=== PATIENT | female | born 1990 | race American Indian/Alaskan Native ===

== ENCOUNTER 2018-02-06 01:42 | Emergency (ER) | payer OTHER ==
[2018-02-06 01:53] VITALS: BP 131/92
--- NOTE | 2018-02-06 03:35 | Emergency Department Report ---
ED ENT HPI - General Chief complaint: Dental/Oral Stated complaint: TOOTHACHE Source: patient Mode of arrival: Ambulatory Limitations: No Limitations - History of Present Illness Initial comments: 27-year-old -[place] female comes in complaining of a toothache. Patient reports that she was recently seen by her dentist on Wednesday and placed on [place] ibuprofen and penicillin V. Patient reports that she still having pain. Patient reports that she stopped taking the [place] after 2 days as she felt it was not helping. Patient denies any fever chills nausea vomiting. She does admit that she has a hole in her tooth MD complaint: tooth pain -: days(s) (5) Location: tooth # (18) Severity: severe Severity scale (0 -10): 10 Quality: stabbing, aching, sharp Consistency: constant Improves with: none Worsens with: none Context- Dental: history of dental caries, poor dental care Associated Symptoms: toothache. denies: fever, cough, gum swelling - Related Data Home Medications Medication Instructions Recorded Confirmed Last Taken Hydrocodon-Acetaminophen 5-325 2 tab PO Q4H PRN 02/06/18 02/06/18 Unknown Penicillin Vk 500 mg PO QID 02/06/18 02/06/18 Unknown Allergies Allergy/AdvReac Type Severity Reaction Status Date / Time No Known Allergies Allergy Unverified 02/06/18 01:53 ED Dental HPI - General Chief complaint: Dental/Oral Stated complaint: TOOTHACHE Source: patient Mode of arrival: Ambulatory Limitations: No Limitations - Related Data Home Medications Medication Instructions Recorded Confirmed Last Taken Hydrocodon-Acetaminophen 5-325 2 tab PO Q4H PRN 02/06/18 02/06/18 Unknown Penicillin Vk 500 mg PO QID 02/06/18 02/06/18 Unknown Allergies Allergy/AdvReac Type Severity Reaction Status Date / Time No Known Allergies Allergy Unverified 02/06/18 01:53 ED Review of Systems ROS: Stated complaint: TOOTHACHE Other details as noted in HPI Constitutional: denies: chills, fever ENT: dental pain Respiratory: denies: cough, shortness of breath, wheezing Cardiovascular: denies: chest pain, palpitations ED Past Medical Hx - Past Medical History Previous Medical History?: No - Surgical History Past Surgical History?: Yes Additional Surgical History: X 1 - Social History Smoking Status: Never Smoker Substance Use Type: None - Medications Home Medications: Home Medications Medication Instructions Recorded Confirmed Last Taken Type Hydrocodon-Acetaminophen 5-325 2 tab PO Q4H PRN 02/06/18 02/06/18 Unknown History Penicillin Vk 500 mg PO QID 02/06/18 02/06/18 Unknown History ED Physical Exam - General Limitations: No Limitations General appearance: alert, in no apparent distress - Head Head exam: Present: atraumatic, normocephalic - Expanded ENT Exam Expanded Teeth exam: Present: dental caries, dental tenderness # (18). Absent: gingival enlargement Throat exam: Negative: tonsillar erythema, tonsillomegaly - Neck Neck exam: Present: full ROM. Absent: tenderness, lymphadenopathy ED Course Vital Signs 02/06/18 01:47 Temperature 98 F Pulse Rate 74 Respiratory 18 Rate Blood Pressure 131/92 O2 Sat by Pulse 100 Oximetry ED Medical Decision Making - Medical Decision Making Patient has been evaluated by this provider fast track. Discussed the patient that she is on [place] 5/325 as well as ibuprofen and penicillin VK. Discussed the patient that she is on appropriate medication for her pain. I recommend patient to start back taken her [place] and to follow up with her dentist. Patient has recently taken Motrin 2 hours ago. Therefore not able to offer her Toradol injection or more Motrin. Critical care attestation.: If time is entered above; I have spent that time in minutes in the direct care of this critically ill patient, excluding procedure time. ED Disposition Clinical Impression: Toothache Disposition: DC-01 TO HOME OR SELFCARE Is pt being admited?: No Does the pt Need Aspirin: No Condition: Stable Instructions: Toothache (ED) Additional Instructions: Continue with her [place] ibuprofen and penicillin. Follow-up with her dentist first thing on Wednesday morning. You can place warm compresses to your face as this may help with your pain. Referrals: PRIMARY CARE, [Primary Care Provider] - 3-5 Days Forms: Work/School Release Form(ED)
== END 2018-02-06 03:24 | disposition home or self-care (01) ==
LOC: ED 01:42
DX: K08.89 Other specified disorders of teeth and supporting structures (principal)
CPT/HCPCS: 99281

== ENCOUNTER 2019-07-12 08:28 | Emergency (ER) | payer OTHER ==
[2019-07-12 08:52] VITALS: BP 122/74
--- NOTE | 2019-07-12 08:57 | Emergency Department Report ---
ED HPI - General Chief complaint: Abdominal Pain Stated complaint: 19 WKS /SIDE PAIN/BABY NOT MOVING Time Seen by Provider: 07/12/19 08:51 Source: patient Mode of arrival: Ambulatory Limitations: No Limitations - History of Present Illness Initial comments: 29 yo AA female who is 19 w comes to ER with concerns that she has not felt baby move. Pt also co left sided pain "pulling." She has no vag bleed and no vag dc. No fever/chills. no dysuria She has had ob care. Vaginal bleeding: none :: Yes OB History - Current : no complications - Related Data : 2 Para: 1 Home Medications Medication Instructions Recorded Confirmed Last Taken Hydrocodon-Acetaminophen 5-325 2 tab PO Q4H PRN 02/06/18 02/06/18 Unknown Penicillin Vk 500 mg PO QID 02/06/18 02/06/18 Unknown Allergies Allergy/AdvReac Type Severity Reaction Status Date / Time No Known Allergies Allergy Unverified 02/06/18 01:53 ED Review of Systems ROS: Stated complaint: 19 WKS /SIDE PAIN/BABY NOT MOVING Other details as noted in HPI Comment: All other systems reviewed and negative ED Past Medical Hx - Past Medical History Previous Medical History?: No - Surgical History Past Surgical History?: Yes Additional Surgical History: X 1 - Family History Family history: no significant - Social History Smoking Status: Never Smoker Substance Use Type: None - Medications Home Medications: Home Medications Medication Instructions Recorded Confirmed Last Taken Type Hydrocodon-Acetaminophen 5-325 2 tab PO Q4H PRN 02/06/18 02/06/18 Unknown History Penicillin Vk 500 mg PO QID 02/06/18 02/06/18 Unknown History ED Physical Exam - General Limitations: No Limitations General appearance: alert, in no apparent distress - Head Head exam: Present: atraumatic, normocephalic - Eye Eye exam: Present: normal appearance - ENT ENT exam: Present: mucous membranes moist - Neck Neck exam: Present: normal inspection - Respiratory Respiratory exam: Present: normal lung sounds bilaterally. Absent: respiratory distress - Cardiovascular Cardiovascular Exam: Present: regular rate, normal rhythm. Absent: systolic murmur, diastolic murmur, rubs, gallop - GI/Abdominal GI/Abdominal exam: Present: soft, normal bowel sounds - Extremities Exam Extremities exam: Present: normal inspection - Back Exam Back exam: Present: normal inspection - Neurological Exam Neurological exam: Present: alert, oriented X3 - Psychiatric Psychiatric exam: Present: normal affect, normal mood - Skin Skin exam: Present: warm, dry, intact, normal color. Absent: rash ED Course Vital Signs 07/12/19 08:34 Temperature 98.2 F Pulse Rate 93 H Respiratory 16 Rate Blood Pressure 122/74 O2 Sat by Pulse 97 Oximetry ED Medical Decision Making - Lab Data Result diagrams: 07/12/19 09:28 07/12/19 09:28 - Radiology Data Radiology results: report reviewed, image reviewed - Medical Decision Making Labs 07/12/19 07/12/19 07/12/19 09:00 09:28 09:28 WBC 6.0 RBC 4.64 Hgb 11.8 Hct 37.4 MCV 81 MCH 25 L MCHC 32 RDW 12.8 L Plt Count 256 Lymph % (Auto) 25.7 [facility] % (Auto) 10.1 H Eos % (Auto) 0.8 Baso % (Auto) 0.3 Lymph # 1.5 [facility] # 0.6 Eos # 0.1 Baso # 0.0 Seg Neutrophils % 63.1 Seg Neutrophils # 3.8 Sodium 135 L Potassium 3.8 Chloride 101.5 Carbon Dioxide 18 L Anion Gap 19 BUN 5 L Creatinine 0.7 Estimated GFR > 60 BUN/Creatinine Ratio 7 Glucose 89 Calcium 9.1 Urine Color Yellow Urine Turbidity Hazy Urine pH 6.0 Ur Specific [place] 1.014 Urine Protein <15 mg/dl Urine Glucose (UA) Neg Urine Ketones Neg Urine Blood Neg Urine Nitrite Neg Urine Bilirubin Neg Urine Urobilinogen 2.0 Ur Leukocyte Esterase Neg Urine WBC (Auto) 3.0 Urine RBC (Auto) 1.0 U Epithel Cells (Auto) 7.0 Urine Bacteria (Auto) 2+ Urine Mucus Few Blood Type Ord Rhogam Gestat Weeks 07/12/19 09:28 WBC RBC Hgb Hct MCV MCH MCHC RDW Plt Count Lymph % (Auto) [facility] % (Auto) Eos % (Auto) Baso % (Auto) Lymph # [facility] [facility] # Eos # Baso # Seg Neutrophils % Seg Neutrophils # Sodium Potassium Chloride Carbon Dioxide Anion Gap BUN Creatinine Estimated GFR BUN/Creatinine Ratio Glucose Calcium Urine Color Urine Turbidity Urine pH Ur Specific [place] Urine Protein Urine Glucose (UA) Urine Ketones Urine Blood Urine Nitrite Urine Bilirubin Urine Urobilinogen Ur Leukocyte Esterase Urine WBC (Auto) Urine RBC (Auto) U Epithel Cells (Auto) Urine Bacteria (Auto) Urine Mucus Blood Type A POSITIVE Ord Rhogam Gestat Weeks Rh pos Vital Signs 07/12/19 08:34 Temperature 98.2 F Pulse Rate 93 H Respiratory 16 Rate Blood Pressure 122/74 O2 Sat by Pulse 97 Oximetry labs noted ua noted VSS ambulatory non ill appearing taking po no vag bleed no vag discharge no cva tenderness us noted dc home with obgyn follow up. Pt verbalizes understanding. - Differential Diagnosis ro demise/uti Critical care attestation.: If time is entered above; I have spent that time in minutes in the direct care of this critically ill patient, excluding procedure time. ED Disposition Clinical Impression: Disposition: DC-01 TO HOME OR SELFCARE Is pt being admited?: No Does the pt Need Aspirin: No Condition: Stable Instructions: (ED) Additional Instructions: FOLLOW UP WITH OBGYN SCHEDULED Referrals: PRIMARY CARE [Primary Care Provider] - 3-5 Days Time of Disposition: 11:04
[2019-07-12 09:15] LABS: Bacteria,Urine 2+ /HPF (Negative); Bilirubin,Urine NEG (Negative); Blood,Urine NEG (Negative); Color,Urine Yellow (Yellow); Mucus,Urine FEW /HPF; Protein,Urine <15 mg/dL mg/dL (Negative)
[2019-07-12 09:54] LABS: Basophils % (Auto) 0.3 % (0.0-1.8); Eosinophils # (Auto) 0.1 K/mm3 (0.0-0.4); Eosinophils % (Auto) 0.8 % (0.0-4.3); Hematocrit 37.4 % (30.3-42.9); Hemoglobin 11.8 gm/dl (10.1-14.3); Lymphocytes # (Auto) 1.5 K/mm3 (1.2-5.4); Lymphocytes % (Auto) 25.7 % (13.4-35.0); Mean Corpuscular HGB Conc 32 % (30-34); Mean Corpuscular Volume 81 fl (79-97); Monocytes # (Auto) 0.6 K/mm3 (0.0-0.8); Monocytes % (Auto) 10.1 % (0.0-7.3); Platelet Count 256 K/mm3 (140-440); Red Blood Count 4.64 M/mm3 (3.65-5.03); Red Cell Distribution Width 12.8 % (13.2-15.2)
[2019-07-12 10:11] LABS: BUN/Creatinine Ratio 7; Blood Urea Nitrogen 5 mg/dL (7-17); Calcium 9.1 mg/dL (8.4-10.2); Hemolysis Index 13
--- NOTE | 2019-07-12 10:54 | Ultrasound Report ---
OB ULTRASOUND >= 14 WEEKS FETUS INDICATION: Abdominal pain during . Back pain, pelvic pain. TECHNIQUE: Transabdominal ultrasound imaging with color and in no Doppler COMPARISON: None at this facility FINDINGS: A single gestation intrauterine is present with cephalic presentation. The placenta is fund al, grade 1 and free of the cervical os. heart tones measure 147 bpm. Amniotic fluid volume is subjectively normal. anatomical survey was not performed. Biparietal diameter is 4.2 cm which equals 18 weeks 6 days. Head circumference is 15.7 cm which equals 18 weeks 4 days. Abdominal circumference is 13.5 cm which equals 19 weeks 0 days. Femur length is 3.0 cm which equals 19 weeks 2 days. Overall estimated sonographic age is 19 weeks 0 days. EDC: 12/06/2019. HC/AC ratio: 1.16 Cephalic index: 82.3 Estimated weight: 273 g +/- 40 grams. 34th percentile.. IMPRESSION: Viable single intrauterine as described. No acute abnormality is detected. Signer Name: Montrell Nascimento Jr, MD Signed: 07/12/2019 10:50 AM Workstation Name: [id number]
== END 2019-07-12 11:15 | disposition home or self-care (01) ==
LOC: ED 08:28
DX: Z34.92 Encounter for supervision of normal pregnancy, unspecified, second trimester (principal); Z3A.19 19 weeks gestation of pregnancy; Z98.890 Other specified postprocedural states; Z79.4 Long term (current) use of insulin; Z79.899 Other long term (current) drug therapy
CPT/HCPCS: 36415; 76805; 80048; 81001; 85025; 86900; 86901; 87086